=== PATIENT | female | born 2000 | race African-American/Black ===

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

== ENCOUNTER 2020-03-31 14:47 | Emergency (ER) | payer MEDICAID ==
[~2020-03-31] VITALS: Ht 167.6 cm; Wt 101.3 kg
[~2020-03-31 14:47] MED LIST: HYDR-1067 PO; IBUP-1222 PO; SENN-52 PO
--- NOTE | 2020-03-31 15:43 | NUR ---
Mom is not . Reports baby was 7lbs 2oz at . CPS at bedside, RN at bedside. Mom holding baby, baby not fussy or crying.
--- NOTE | 2020-03-31 17:07 | NUR ---
Provider at bedside, RN at bedside. Provider assessing/examining mom and baby.
[2020-03-31 18:24] VITALS: BP 122/73
--- NOTE | 2020-03-31 19:06 | NUR ---
Pt agrees with and understands discharge plan and instructions. Pt provided cab voucher to get home. Pt reports she is able to come to ER for follow-up tomorrow in cab.
== END 2020-03-31 19:09 | disposition home or self-care (01) ==
LOC: ED 16:22
DX: O90.1 Disruption of perineal obstetric wound (principal)
CPT/HCPCS: 99281

== ENCOUNTER 2020-05-07 12:26 | Emergency (ER) | payer MEDICAID ==
[~2020-05-07] VITALS: Ht 167.6 cm; Wt 98.0 kg
[2020-05-07 12:34] VITALS: BP 129/54
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
[2020-05-07] MEDS ORDERED: PREN1TAB62 PO (12:51)
--- NOTE | 2020-05-07 12:55 | NUR ---
PATIENT HAS A 3 MONTH OLD. HAS NOT HAD A PERIOD SINCE BEFORE THAT .
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
--- NOTE | 2020-05-07 13:39 | NUR ---
THE PATIENT ALSO STATED THAT THE "COULDN'T DEAL WITH IT RIGHT NOW AND SHE NEEDED TO COME HOME."
--- NOTE | 2020-05-07 13:41 | NUR ---
CALL TO FINANCIAL ACCOUNTING ANALYST TO ADVISE THEM OF THE SITUATION.
== END 2020-05-07 13:44 | disposition left against medical advice (07) ==
LOC: ED 13:20
DX: R10.84 Generalized abdominal pain (principal); R11.2 Nausea with vomiting, unspecified; J45.909 Unspecified asthma, uncomplicated
CPT/HCPCS: 99283

== ENCOUNTER 2020-05-08 11:31 | Emergency (ER) | payer MEDICAID ==
[~2020-05-08] VITALS: Ht 170.2 cm; Wt 88.0 kg
[~2020-05-08 11:31] MED LIST changes: +PREN1TAB62 PO
--- NOTE | 2020-05-08 11:38 | NUR ---
PT BIB AMBULANCE AND PLACED INTO GOWN. DR. OVERTON AT BS. PT EDUCATED ON ER PROCESS AND POC AND VERBALIZES UNDERSTANDING. PT PLACED ON VS MONITORS. VSS AT THIS TIME. PIV ACCESS ESTABLISHED AND LABS COLLECTED. XRAY AT BS NOW. PT HAS CALL LIGHT WITHIN REACH AND DENIES ANY NEEDS AT THIS TIME.
[2020-05-08] MEDS ORDERED: ONDANSETRON 2MG/ML, 2ML ONE (11:56)
[2020-05-08] MEDS ORDERED: HYDROmorphone 2 MG/ML, 1ML ONE (11:56)
[2020-05-08] MEDS ORDERED: SODIUM CHLORIDE 0.9% 1,000ML IVBOLUS ONE (12:00)
[2020-05-08] MEDS ORDERED: HYDROmorphone 2 MG/ML, 1ML IVPush PRN (12:00)
[2020-05-08] MEDS ORDERED: ONDANSETRON 2MG/ML, 2ML IVPush ONE (12:00)
[2020-05-08] MEDS ORDERED: SODIUM CHLORIDE FLUSH 10ML SYR IVF ONE (12:00)
[2020-05-08 12:05] LABS: BASOPHILS % (AUTO) 0 % (0-1); EOSINOPHILS % (AUTO) 0 % (1-7); LYMPHOCYTES % (AUTO) 14 % (22-44); MEAN PLATELET VOLUME 8.3 fL (7.4-10.4); MONOCYTES % (AUTO) 5 % (2-9); NEUTROPHILS % (AUTO) 81 % (42-75); PLATELET COUNT 234 x10^3/uL (130-400); RED BLOOD COUNT 4.51 x10^6/uL (3.82-5.3); RED CELL DISTRIBUTION WIDTH 15.4 % (9.6-15.2)
[2020-05-08 12:11] LABS: ALBUMIN 3.3 g/dL (3.4-5.0); ANION GAP 5 mmol/L (5-15); CALCIUM 8.8 mg/dL (8.5-10.1); CHLORIDE 109 mmol/L (98-107)
[2020-05-08 12:14] LABS: MD NO
[2020-05-08 12:16] LABS: ALANINE AMINOTRANSFERASE 42 U/L (12-78); ALKALINE PHOSPHATASE 86 U/L (45-117); BILIRUBIN,TOTAL 0.6 mg/dL (0.2-1.0); CREATININE 1.02 mg/dL (0.55-1.02); TOTAL PROTEIN 7.9 g/dL (6.4-8.2)
--- NOTE | 2020-05-08 12:26 | NUR ---
PT RESTING IN [facility] AT THIS TIME. PT MEDICATED PER MAY. PT REPORTS INSTANT RELIEF OF SYMPTOMS AND HAS NADN. PT WITH CALL LIGHT WITHIN REACH AT THIS TIME.
--- NOTE | 2020-05-08 12:47 | NUR ---
PT ASLEEP IN [facility] [place] THIS TIME WITH NADN. IV FLUIDS RUNNING PER MAY. PT HAS CALL LIGHT WITHIN REACH.
[2020-05-08 13:24] VITALS: BP 112/47
--- NOTE | 2020-05-08 13:24 | NUR ---
PT AMBULATES TO RESTROOM WITH STEADY GAIT. PT VSS AT THIS TIME.
--- NOTE | 2020-05-08 13:35 | NUR ---
US AT BS AT THIS TIME. PT URINE COLLECTED AND WALKED TO LAB AT THIS TIME.
[2020-05-08 13:50] LABS: MICROSCOPIC INDICATED
--- NOTE | 2020-05-08 14:00 | NUR ---
REPORT OF PT TO BETHANY HOLDEN. ALL QUESTIONS ANSWERED.
--- NOTE | 2020-05-08 14:19 | NUR ---
ASSUMED CARE OF PT FROM BETHANY DUVAL. PT RESTING IN [facility], MONITORING IN PLACE, STELLA AT THIS TIME, [employer].
--- NOTE | 2020-05-08 14:55 | NUR ---
PT'S CHILD AND FATHER OF CHILD MOVED TO ROOM 9 FOR SAFETY AT THIS TIME. PT STILL CURSING AT STAFF, SECURITY AND [employer] AT BEDSIDE. PSYCHIATRIC NURSING ASSISTANT ALSO AT BEDSIDE.
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
--- NOTE | 2020-05-08 15:21 | NUR ---
ED MD AT BEDSIDE FOR RECHECK. RESULTS DISCUSSED C PT. RPD, SECURITY, AND SW AT BEDSIDE. PT SITTING IN CHAIR. PT REMOVED OWN IV, REFUSING BANDAGE BY RN. CATHETER TIP INTACT. PT CALM/COOPERATIVE AT THIS TIME. REFUSING VITAL SIGNS.
[2020-05-08] MEDS ORDERED: LIDOCAINE-MPF 1%, 2ML ONE (15:24)
[2020-05-08] MEDS ORDERED: CEFTRIAXONE 1,000 MG ONE (15:24)
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
[2020-05-08] MEDS ORDERED: LIDOCAINE-MPF 2%, 2ML INFIL ONE (16:00)
[2020-05-08] MEDS ORDERED: CEFTRIAXONE 1,000 MG IM ONE (16:00)
--- NOTE | 2020-05-08 16:00 | NUR ---
PT SITTING IN CHAIR IN ROOM, SECURITY AND CPS AT BEDSIDE. PT REFUSING VITAL SIGNS AND MONITORING AT THIS TIME.
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
--- NOTE | 2020-05-08 16:40 | NUR ---
PER ALMAZ NICHOLSON CPS WORKER [place] STATED THEY WILL FOLLOW PT AND FAMILY HOME AND FOLLOW UP. PT EDUCATED ON DISCHARGE INSTRUCTIONS. PT AMBULATED TO LOBBY WITH CPS.
== END 2020-05-08 16:42 | disposition home or self-care (01) ==
LOC: ED 11:54
DX: N30.00 Acute cystitis without hematuria (principal); G89.29 Other chronic pain; R10.9 Unspecified abdominal pain; R10.11 Right upper quadrant pain; R10.30 Lower abdominal pain, unspecified; J45.909 Unspecified asthma, uncomplicated
CPT/HCPCS: 36415; 71045; 76700; 80053; 81001; 83690; 84703; 85025; 87077; 87086; 87186; 96361; 96372; 96374; 96375; 99285; J0696; J1170; J2405; J7030

== ENCOUNTER 2020-07-31 18:02 | Emergency (ER) | payer MEDICAID ==
[~2020-07-31] VITALS: Ht 167.6 cm; Wt 106.1 kg
[~2020-07-31 18:02] MED LIST changes: -HYDR-1067 PO; +HYDR-2214 PO
--- NOTE | 2020-07-31 18:46 | NUR ---
REPORT TO PADMINI
--- NOTE | 2020-07-31 18:46 | NUR ---
Report from BETHANY Waters. This RN to assume care.
[2020-07-31 18:52] LABS: BASOPHILS % (AUTO) 1 % (0-1); EOSINOPHILS % (AUTO) 2 % (1-7); LYMPHOCYTES % (AUTO) 45 % (22-44); MEAN CORPUSCULAR HEMOGLOBIN 31.9 pg (27.0-34.8); MEAN CORPUSCULAR HGB CONC 33.7 g/dL (32.4-35.8); MEAN PLATELET VOLUME 7.8 fL (7.4-10.4); MONOCYTES % (AUTO) 13 % (2-9); NEUTROPHILS % (AUTO) 39 % (42-75); PLATELET COUNT 270 x10^3/uL (130-400); RED BLOOD COUNT 4.58 x10^6/uL (3.82-5.3); RED CELL DISTRIBUTION WIDTH 14.8 % (9.6-15.2)
[2020-07-31 19:05] LABS: ALBUMIN 3.4 g/dL (3.4-5.0); ANION GAP 9 mmol/L (5-15); CALCIUM 8.7 mg/dL (8.5-10.1); CHLORIDE 109 mmol/L (98-107); CREATININE 0.65 mg/dL (0.55-1.02)
--- NOTE | 2020-07-31 19:17 | NUR ---
Patient to US.
[2020-07-31 19:31] LABS: MD SCAN
[2020-07-31 19:49] VITALS: BP 144/77
--- NOTE | 2020-07-31 20:42 | NUR ---
Patient left without discharge instructions; given to charge.
== END 2020-07-31 20:44 | disposition home or self-care (01) ==
LOC: ED 18:19
DX: N93.8 Other specified abnormal uterine and vaginal bleeding (principal); N92.0 Excessive and frequent menstruation with regular cycle; Z87.891 Personal history of nicotine dependence
CPT/HCPCS: 36415; 76830; 80048; 82040; 84703; 85025; 99284

== ENCOUNTER 2020-10-13 16:35 | Emergency (ER) | payer SELFPAY ==
[~2020-10-13] VITALS: Ht 167.6 cm; Wt 104.5 kg
--- NOTE | 2020-10-13 16:45 | NUR ---
MD CHAIREZ BEDSIDE
[2020-10-13] MEDS ORDERED: FAMOTIDINE 20 MG TABLET PO ONE (17:00)
[2020-10-13] MEDS ORDERED: DIPHENHYDRAMINE 50 MG/ML, 1ML IM ONE (17:00)
[2020-10-13] MEDS ORDERED: DIPHENHYDRAMINE 50 MG/ML, 1ML ONE (17:03)
[2020-10-13] MEDS ORDERED: FAMOTIDINE 20 MG TABLET ONE (17:03)
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
[2020-10-13 17:35] VITALS: BP 111/68
== END 2020-10-13 17:47 | disposition home or self-care (01) ==
LOC: ED 17:41
DX: T63.441A Toxic effect of venom of bees, accidental (unintentional), initial encounter (principal); R22.31 Localized swelling, mass and lump, right upper limb; Y92.009 Unspecified place in unspecified non-institutional (private) residence as the place of occurrence of the external cause
CPT/HCPCS: 96372; 99283; J1200

== ENCOUNTER 2020-11-07 08:50 | Emergency (ER) | payer MEDICAID ==
[~2020-11-07] VITALS: Ht 167.6 cm; Wt 101.2 kg
--- NOTE | 2020-11-07 10:16 | NUR ---
industrial real estate agent note: No answer from lobby when pt called for room.
--- NOTE | 2020-11-07 10:27 | NUR ---
PT TO ROOM FROM LOBBY.
--- NOTE | 2020-11-07 10:29 | NUR ---
URINE COLLECTED/SENT TO LAB. AWAITING LABS TO BE DRAWN.
[2020-11-07 10:32] VITALS: BP 112/61
[2020-11-07 10:50] LABS: MICROSCOPIC INDICATED
== END 2020-11-07 10:51 | disposition home or self-care (01) ==
LOC: ED 10:43
DX: O26.891 Other specified pregnancy related conditions, first trimester (principal); R11.0 Nausea; Z3A.01 Less than 8 weeks gestation of pregnancy
CPT/HCPCS: 76801; 81001; 87077; 87086; 99284

== ENCOUNTER 2020-11-14 21:08 | Emergency (ER) | payer MEDICAID ==
[~2020-11-14] VITALS: Ht 167.6 cm; Wt 106.1 kg
[2020-11-14 21:09] VITALS: BP 117/65
--- NOTE | 2020-11-14 21:38 | NUR ---
PT LEFT AMA
== END 2020-11-14 21:41 | disposition left against medical advice (07) ==
LOC: ED 21:30
DX: O26.891 Other specified pregnancy related conditions, first trimester (principal); Z3A.10 10 weeks gestation of pregnancy

== ENCOUNTER 2020-11-28 14:18 | Emergency (ER) | payer MEDICAID ==
[~2020-11-28] VITALS: Ht 167.6 cm; Wt 103.0 kg
[2020-11-28 14:35] VITALS: BP 112/48
== END 2020-11-28 15:17 | disposition home or self-care (01) ==
LOC: ED 15:00
DX: F41.1 Generalized anxiety disorder (principal); Z76.0 Encounter for issue of repeat prescription
CPT/HCPCS: 99281